=== PATIENT | male | born 1960 | race Caucasian/White ===

== ENCOUNTER 2020-11-02 11:00 | Inpatient (IN) ==
[2020-11-02] MEDS ORDERED: *HR* OxyCODONE/APAP 5/325 TABLET PO ONE (11:10)
[2020-11-02] MEDS ORDERED: Furosemide 40 MG/4 ML VIAL IVP ONE (11:10)
[2020-11-02 12:00] LABS: Basophils # 0.1 K/mcL (0.0-0.2); Basophils % 0.8 %; Eosinophils # 0.3 K/mcL (0.0-0.6); Eosinophils % 3.4 %; Hematocrit 40.7 % (37.5-50.1); Immature Granulocytes % 0.4 % (0-4); Lymphocytes # 1.1 K/mcL (0.6-4.6); Lymphocytes % 15.4 %; Mean Corpuscular HGB Conc 31.9 g/dL (31.6-35.5); Mean Corpuscular Hemoglobin 33.2 pg (28.0-33.3); Mean Corpuscular Volume 104.1 fL (83.0-100.0); Mean Platelet Volume 9.6 fL (9.4-12.4); Monocytes # 0.8 K/mcL (0.0-1.3); Monocytes % 10.4 %; Neutrophils # 5.2 K/mcL (1.6-8.9); Platelet Count 187 K/mcL (140-400); Red Blood Count 3.91 M/mcL (4.19-5.50); Red Cell Distribution Width 12.9 % (11.5-14.5); Segmented Neutrophils % 69.6 %; White Blood Count 7.4 K/mcL (4.3-11.1)
[2020-11-02 12:20] LABS: Alanine Aminotransferase 31 Units/L (7-52); Albumin 3.8 g/dL (3.5-5.7); Albumin/Globulin Ratio 1.5 (1.1-2.2); Alkaline Phosphatase 74 Units/L (34-104); Aspartate Amino Transferase 21 Units/L (13-39); BUN/Creatinine Ratio 30 (6-26); Bilirubin,Direct 0.1 mg/dL (0.0-0.2); Bilirubin,Indirect 0.6 mg/dL (0.0-1.0); Bilirubin,Total 0.7 mg/dL (0.3-1.0); Blood Urea Nitrogen 31 mg/dL (8-23); Calcium 8.1 mg/dL (8.6-10.3); Carbon Dioxide 34 mEq/L (23-29); Chloride 98 mEq/L (98-107); Globulin 2.6 g/dL (2.4-3.5); Glucose 83 mg/dL (70-105); Osmolality,Calculated 294 (280-300); Potassium 4.2 mEq/L (3.5-5.1); Sodium 139 mEq/L (136-145); Total Protein 6.4 g/dL (6.4-8.9); Troponin I < 0.03 ng/mL (< 0.04); eGFR For African Americans > 60 (> 60); eGFR For Non-African Americans > 60 (> 60)
[2020-11-02 12:32] LABS: Bilirubin,Urine Negative (Negative); Blood,Urine Negative (Negative); Clarity,Urine Clear (Clear); Color,Urine Light-Yellow (Yellow); Glucose,Urine (UA) Normal (Normal); Ketones,Urine Negative (Negative); Leukocyte Esterase,Urine Negative (Negative); Nitrite,Urine Negative (Negative); PH,Urine 6.5 pH Units (5.0-8.0); Protein,Urine Negative (Neg-Trace); Specific Gravity,Urine 1.015 (1.010-1.025); Urobilinogen,Urine Normal (Normal)
[2020-11-02] MEDS ORDERED: Ondansetron 4 MG/2 ML VIAL IVP PRN (12:54)
[2020-11-02] MEDS ORDERED: Naloxone 0.4 MG/ML INJ IVP PRN (12:54)
[2020-11-02] MEDS ORDERED: Perflutren Lipid Microsphere 1.3 ML in 0.9 % Sodium Chloride 8.7 ML IVP PRN (12:58)
[2020-11-02] MEDS ORDERED: Loratadine 10 MG TABLET PO PRN (13:33)
[2020-11-02] MEDS ORDERED: traZODone 50 MG TABLET PO PRN (13:33)
[2020-11-02] MEDS ORDERED: Nicotine 2 MG GUM PO PRN (13:33)
[2020-11-02 13:38] LABS: INR 2.5
[2020-11-02 14:37] LABS: INR 2.4; Prothrombin Time 27.6 Seconds (9.4-12.1)
[2020-11-02] MEDS: Gabapentin 300 MG CAPSULE PO SCH ×2 (14:47→22:04)
[2020-11-02] MEDS: Nicotine 21 MG PATCH.TD24 TD SCH (14:47)
[2020-11-02] MEDS: *HR* OxyCODONE/APAP 5/325 TABLET PO PRN (17:27)
[2020-11-02] MEDS ORDERED: Warfarin perPT PO PRN (18:00)
[2020-11-02] MEDS ORDERED: *HR* Warfarin 7.5 MG TABLET PO ONE (18:00)
[2020-11-02] MEDS: Budesonide/Formoterol 160/4.5 1 PUFF INH IH SCH (19:56)
[2020-11-02] MEDS: Metoprolol XL (24 HR) Succ 50 MG TAB.ER.24H PO SCH (22:04)
[2020-11-02] MEDS: Famotidine 20 MG TABLET PO SCH (22:04)
[2020-11-02] MEDS: Furosemide 40 MG/4 ML VIAL IVP SCH (22:05)
[2020-11-03] MEDS: Saline Nasal Spray 44 ML BOTTLE NS SCH ×3 (00:07→20:46)
[2020-11-03] MEDS: *HR* OxyCODONE/APAP 5/325 TABLET PO PRN ×4 (03:27→21:37)
[2020-11-03 03:49] LABS: Basophils # 0.1 K/mcL (0.0-0.2); Basophils % 0.8 %; Eosinophils # 0.3 K/mcL (0.0-0.6); Eosinophils % 4.2 %; Hemoglobin 12.9 g/dL (12.9-16.9); Immature Granulocytes % 0.5 % (0-4); Lymphocytes # 1.3 K/mcL (0.6-4.6); Lymphocytes % 19.6 %; Mean Corpuscular HGB Conc 31.5 g/dL (31.6-35.5); Mean Corpuscular Hemoglobin 33.4 pg (28.0-33.3); Mean Corpuscular Volume 106.2 fL (83.0-100.0); Mean Platelet Volume 9.8 fL (9.4-12.4); Monocytes # 0.7 K/mcL (0.0-1.3); Monocytes % 11.2 %; Neutrophils # 4.2 K/mcL (1.6-8.9); Platelet Count 185 K/mcL (140-400); Red Blood Count 3.86 M/mcL (4.19-5.50); Segmented Neutrophils % 63.7 %; White Blood Count 6.6 K/mcL (4.3-11.1)
[2020-11-03 03:59] LABS: INR 2.4; Prothrombin Time 27.2 Seconds (9.4-12.1)
[2020-11-03 04:07] LABS: BUN/Creatinine Ratio 23 (6-26); Blood Urea Nitrogen 30 mg/dL (8-23); Calcium 8.3 mg/dL (8.6-10.3); Carbon Dioxide 40 mEq/L (23-29); Chloride 98 mEq/L (98-107); Glucose 101 mg/dL (70-105); Magnesium 2.2 mg/dL (1.6-2.6); Osmolality,Calculated 298 (280-300); Potassium 4.6 mEq/L (3.5-5.1); Sodium 141 mEq/L (136-145); eGFR For African Americans > 60 (> 60); eGFR For Non-African Americans 55 (> 60)
[2020-11-03] MEDS: ARIPiprazole 10 MG TABLET PO SCH (08:08)
[2020-11-03] MEDS: Gabapentin 300 MG CAPSULE PO SCH ×3 (08:08→20:45)
[2020-11-03] MEDS: Cholecalciferol (D-3) 1,000 UNIT (25MCG) TABLET PO SCH (08:08)
[2020-11-03] MEDS: Furosemide 40 MG/4 ML VIAL IVP SCH (08:09)
[2020-11-03] MEDS: Nicotine 21 MG PATCH.TD24 TD SCH (08:09)
[2020-11-03] MEDS: Famotidine 20 MG TABLET PO SCH ×2 (08:09→20:45)
[2020-11-03] MEDS: Metoprolol XL (24 HR) Succ 50 MG TAB.ER.24H PO SCH ×2 (08:09→20:45)
[2020-11-03] MEDS: PARoxetine 20 MG TABLET PO SCH (08:09)
[2020-11-03] MEDS: Aspirin Enteric Coated 81 MG Tablet PO SCH (08:09)
[2020-11-03] MEDS: Budesonide/Formoterol 160/4.5 1 PUFF INH IH SCH ×2 (10:59→22:34)
[2020-11-03] MEDS ORDERED: *HR* Warfarin 7.5 MG TABLET PO ONE (18:00)
[2020-11-04 02:12] LABS: INR 2.6; Prothrombin Time 29.7 Seconds (9.4-12.1)
[2020-11-04 02:20] LABS: BUN/Creatinine Ratio 23 (6-26); Blood Urea Nitrogen 30 mg/dL (8-23); Calcium 8.1 mg/dL (8.6-10.3); Carbon Dioxide 36 mEq/L (23-29); Chloride 95 mEq/L (98-107); Glucose 156 mg/dL (70-105); Magnesium 2.1 mg/dL (1.6-2.6); Osmolality,Calculated 293 (280-300); Phosphorous 3.3 mg/dL (2.7-4.5); Potassium 4.1 mEq/L (3.5-5.1); Sodium 137 mEq/L (136-145); eGFR For African Americans > 60 (> 60); eGFR For Non-African Americans 56 (> 60)
[2020-11-04] MEDS: *HR* OxyCODONE/APAP 5/325 TABLET PO PRN ×4 (03:44→22:25)
[2020-11-04] MEDS: Cholecalciferol (D-3) 1,000 UNIT (25MCG) TABLET PO SCH (10:05)
[2020-11-04] MEDS: Aspirin Enteric Coated 81 MG Tablet PO SCH (10:05)
[2020-11-04] MEDS: Gabapentin 300 MG CAPSULE PO SCH ×3 (10:05→20:33)
[2020-11-04] MEDS: PARoxetine 20 MG TABLET PO SCH (10:05)
[2020-11-04] MEDS: Famotidine 20 MG TABLET PO SCH ×2 (10:05→20:33)
[2020-11-04] MEDS: ARIPiprazole 10 MG TABLET PO SCH (10:05)
[2020-11-04] MEDS: Metoprolol XL (24 HR) Succ 50 MG TAB.ER.24H PO SCH ×2 (10:05→20:33)
[2020-11-04] MEDS: Nicotine 21 MG PATCH.TD24 TD SCH (10:06)
[2020-11-04] MEDS: Furosemide 40 MG/4 ML VIAL IVP SCH (10:06)
[2020-11-04] MEDS: Saline Nasal Spray 44 ML BOTTLE NS SCH ×2 (10:15→20:34)
[2020-11-04] MEDS: Budesonide/Formoterol 160/4.5 1 PUFF INH IH SCH ×3 (10:59→20:05)
[2020-11-04] MEDS ORDERED: *HR* Warfarin 5 MG TABLET PO ONE (18:00)
[2020-11-05 02:36] LABS: INR 2.9; Prothrombin Time 32.9 Seconds (9.4-12.1)
[2020-11-05] MEDS: *HR* OxyCODONE/APAP 5/325 TABLET PO PRN ×2 (04:43→11:16)
[2020-11-05] MEDS: Gabapentin 300 MG CAPSULE PO SCH (09:13)
[2020-11-05] MEDS: Cholecalciferol (D-3) 1,000 UNIT (25MCG) TABLET PO SCH (09:13)
[2020-11-05] MEDS: Famotidine 20 MG TABLET PO SCH (09:13)
[2020-11-05] MEDS: PARoxetine 20 MG TABLET PO SCH (09:13)
[2020-11-05] MEDS: ARIPiprazole 10 MG TABLET PO SCH (09:13)
[2020-11-05] MEDS: Metoprolol XL (24 HR) Succ 50 MG TAB.ER.24H PO SCH (09:14)
[2020-11-05] MEDS: Nicotine 21 MG PATCH.TD24 TD SCH (09:15)
[2020-11-05] MEDS: Furosemide 40 MG/4 ML VIAL IVP SCH (09:15)
[2020-11-05] MEDS: Aspirin Enteric Coated 81 MG Tablet PO SCH (09:15)
[2020-11-05] MEDS: Saline Nasal Spray 44 ML BOTTLE NS SCH (09:16)
[2020-11-05] MEDS: Budesonide/Formoterol 160/4.5 1 PUFF INH IH SCH (10:17)
[2020-11-05 10:58] VITALS: BP 116/75
[2020-11-05 12:38] LABS: Adenovirus Not Detected (Not Detect); Bordetella Pertussis Not Detected (Not Detect); Chlamydophila pneumoniae Not Detected (Not Detect); Coronavirus 229E Not Detected (Not Detect); Coronavirus HKU1 Not Detected (Not Detect); Coronavirus NL63 Not Detected (Not Detect); Coronavirus OC43 Not Detected (Not Detect); Human Metapneumovirus Not Detected (Not Detect); Human Rhinovirus/Enterovirus Not Detected (Not Detect); Influenza A Subtype 2009 H1 Not Detected (Not Detect); Influenza B Not Detected (Not Detect); Mycoplasma pneumoniae Not Detected (Not Detect); Parainfluenza Virus 1 Not Detected (Not Detect); Parainfluenza Virus 2 Not Detected (Not Detect); Parainfluenza Virus 3 Not Detected (Not Detect); Parainfluenza Virus 4 Not Detected (Not Detect); Respiratory Syncytial Virus Not Detected (Not Detect); SARS-CoV-2 Not Detected (Not Detect)
[2020-11-05] MEDS ORDERED: *HR* Warfarin 5 MG TABLET PO ONE (18:00)
== END 2020-11-05 14:19 | DRG 292 ==
LOC: 2ANU 11:00 → EMEROOARM 11:00 → SUATTDRO 12:55 → 2ANU 14:01
PROVIDERS: ADMIT Internal Medicine; ATTEND Internal Medicine

== ENCOUNTER 2020-11-11 11:34 | Inpatient (IN) ==
[2020-11-11] MEDS ORDERED: Furosemide 40 MG/4 ML VIAL IVP ONE (11:57)
[2020-11-11] MEDS ORDERED: *HR* HYDROcodone/Acet 5/325 mg TABLET PO ONE (12:00)
[2020-11-11 12:10] LABS: Hematocrit 39.8 % (37.5-50.1); Hemoglobin 12.1 g/dL (12.9-16.9); Immature Granulocytes % 0.5 % (0-4); Lymphocytes % 11.6 %; Mean Corpuscular HGB Conc 30.4 g/dL (31.6-35.5); Mean Corpuscular Hemoglobin 32.9 pg (28.0-33.3); Mean Corpuscular Volume 108.2 fL (83.0-100.0); Mean Platelet Volume 9.8 fL (9.4-12.4); Monocytes % 10.3 %; Platelet Count 206 K/mcL (140-400); Red Blood Count 3.68 M/mcL (4.19-5.50); Red Cell Distribution Width 13.2 % (11.5-14.5); Segmented Neutrophils % 74.3 %; White Blood Count 7.9 K/mcL (4.3-11.1)
[2020-11-11 12:11] LABS: Basophils # 0.1 K/mcL (0.0-0.2); Basophils % 0.9 %; Eosinophils # 0.2 K/mcL (0.0-0.6); Eosinophils % 2.4 %; Lymphocytes # 0.9 K/mcL (0.6-4.6); Monocytes # 0.8 K/mcL (0.0-1.3); Neutrophils # 5.9 K/mcL (1.6-8.9)
[2020-11-11 12:19] LABS: INR 3.6; Prothrombin Time 39.8 Seconds (9.4-12.1)
[2020-11-11 12:22] LABS: Bilirubin,Urine Negative (Negative); Blood,Urine Negative (Negative); Clarity,Urine Clear (Clear); Color,Urine Colorless (Yellow); Glucose,Urine (UA) Normal (Normal); Ketones,Urine Negative (Negative); Leukocyte Esterase,Urine Negative (Negative); Nitrite,Urine Negative (Negative); Protein,Urine Negative (Neg-Trace); Urobilinogen,Urine Normal (Normal)
[2020-11-11 12:22] LABS: Activated Partial Thrombo Time 40.4 Seconds (26.0-36.0)
[2020-11-11 12:50] LABS: Alanine Aminotransferase 66 Units/L (7-52); Albumin 3.8 g/dL (3.5-5.7); Albumin/Globulin Ratio 1.5 (1.1-2.2); Alkaline Phosphatase 73 Units/L (34-104); Aspartate Amino Transferase 45 Units/L (13-39); BUN/Creatinine Ratio 34 (6-26); Bilirubin,Direct 0.1 mg/dL (0.0-0.2); Bilirubin,Indirect 0.5 mg/dL (0.0-1.0); Bilirubin,Total 0.6 mg/dL (0.3-1.0); Blood Urea Nitrogen 34 mg/dL (8-23); Carbon Dioxide 36 mEq/L (23-29); Chloride 100 mEq/L (98-107); Globulin 2.5 g/dL (2.4-3.5); Glucose 96 mg/dL (70-105); Osmolality,Calculated 299 (280-300); Potassium 5.1 mEq/L (3.5-5.1); Sodium 141 mEq/L (136-145); Total Protein 6.3 g/dL (6.4-8.9); Troponin I < 0.03 ng/mL (< 0.04); eGFR For African Americans > 60 (> 60); eGFR For Non-African Americans > 60 (> 60)
[2020-11-11] MEDS ORDERED: Ondansetron 4 MG/2 ML VIAL IVP PRN (15:26)
[2020-11-11] MEDS ORDERED: Naloxone 0.4 MG/ML INJ IVP PRN (15:26)
[2020-11-11] MEDS ORDERED: Acetaminophen 325 MG TABLET PO PRN (15:26)
[2020-11-11] MEDS ORDERED: traZODone 50 MG TABLET PO PRN (18:05)
[2020-11-11] MEDS ORDERED: Loratadine 10 MG TABLET PO PRN (18:05)
[2020-11-11] MEDS: *HR* HYDROcodone/Acet 5/325 mg TABLET PO PRN (18:27)
[2020-11-11] MEDS: Famotidine 20 MG TABLET PO SCH (20:15)
[2020-11-11] MEDS: Metoprolol XL (24 HR) Succ 50 MG TAB.ER.24H PO SCH (20:15)
[2020-11-11] MEDS: Gabapentin 400 MG CAPSULE PO SCH (20:16)
[2020-11-11] MEDS: Albumin 25% 25gram/100mL 25 GM/100 ML IV.SOLN IVPB SCH (20:16)
[2020-11-11] MEDS: Saline Nasal Spray 44 ML BOTTLE NS SCH (20:16)
[2020-11-11] MEDS: Furosemide 40 MG/4 ML VIAL IVP SCH (20:16)
[2020-11-11] MEDS: predniSONE 20 MG TABLET PO SCH (21:11)
[2020-11-11] MEDS: Azithromycin 250 MG TABLET PO SCH (21:11)
[2020-11-11] MEDS: Budesonide/Formoterol 160/4.5 1 PUFF INH IH SCH (21:20)
[2020-11-12 03:39] LABS: Hematocrit 37.6 % (37.5-50.1); Hemoglobin 11.4 g/dL (12.9-16.9); Mean Corpuscular HGB Conc 30.3 g/dL (31.6-35.5); Mean Corpuscular Hemoglobin 33.3 pg (28.0-33.3); Mean Corpuscular Volume 109.9 fL (83.0-100.0); Mean Platelet Volume 9.9 fL (9.4-12.4); Platelet Count 204 K/mcL (140-400); Red Blood Count 3.42 M/mcL (4.19-5.50); Red Cell Distribution Width 13.6 % (11.5-14.5)
[2020-11-12 03:51] LABS: INR 3.4
[2020-11-12 04:03] LABS: BUN/Creatinine Ratio 26 (6-26); Blood Urea Nitrogen 31 mg/dL (8-23); Calcium 8.8 mg/dL (8.6-10.3); Carbon Dioxide 41 mEq/L (23-29); Chloride 98 mEq/L (98-107); Glucose 134 mg/dL (70-105); Magnesium 2.1 mg/dL (1.6-2.6); Osmolality,Calculated 303 (280-300); Phosphorous 3.5 mg/dL (2.7-4.5); Sodium 142 mEq/L (136-145); Troponin I < 0.03 ng/mL (< 0.04); eGFR For African Americans > 60 (> 60); eGFR For Non-African Americans > 60 (> 60)
[2020-11-12] MEDS: Albumin 25% 25gram/100mL 25 GM/100 ML IV.SOLN IVPB SCH ×2 (08:23→19:37)
[2020-11-12] MEDS: Gabapentin 400 MG CAPSULE PO SCH ×3 (08:28→19:18)
[2020-11-12] MEDS: ARIPiprazole 10 MG TABLET PO SCH (08:28)
[2020-11-12] MEDS: Aspirin Enteric Coated 81 MG Tablet PO SCH (08:28)
[2020-11-12] MEDS: Nicotine 21 MG PATCH.TD24 TD SCH (08:28)
[2020-11-12] MEDS: predniSONE 20 MG TABLET PO SCH (08:29)
[2020-11-12] MEDS: PARoxetine 20 MG TABLET PO SCH (08:29)
[2020-11-12] MEDS: Famotidine 20 MG TABLET PO SCH ×2 (08:29→19:18)
[2020-11-12] MEDS: Multivit/Ca/Min/Fe/FA 1 TAB TABLET PO SCH (08:30)
[2020-11-12] MEDS: *HR* HYDROcodone/Acet 5/325 mg TABLET PO PRN (08:30)
[2020-11-12] MEDS: Azithromycin 250 MG TABLET PO SCH (08:30)
[2020-11-12] MEDS: Metoprolol XL (24 HR) Succ 50 MG TAB.ER.24H PO SCH ×2 (08:30→19:19)
[2020-11-12] MEDS: Saline Nasal Spray 44 ML BOTTLE NS SCH ×2 (08:33→19:18)
[2020-11-12] MEDS: Budesonide/Formoterol 160/4.5 1 PUFF INH IH SCH ×2 (09:47→20:22)
[2020-11-12] MEDS: Furosemide 40 MG/4 ML VIAL IVP SCH ×2 (10:21→21:29)
[2020-11-12] MEDS ORDERED: Warfarin perPT PO PRN (18:00)
[2020-11-13] MEDS: *HR* HYDROcodone/Acet 5/325 mg TABLET PO PRN ×3 (01:07→21:30)
[2020-11-13] MEDS: Ipratropium/Albuterol Neb 3 ML IH PRN ×2 (01:11→08:43)
[2020-11-13 02:32] LABS: Basophils % 0.4 %; Eosinophils # 0.1 K/mcL (0.0-0.6); Eosinophils % 1.6 %; Hematocrit 34.4 % (37.5-50.1); Hemoglobin 10.4 g/dL (12.9-16.9); Immature Granulocytes % 0.6 % (0-4); Lymphocytes % 13.5 %; Mean Corpuscular HGB Conc 30.2 g/dL (31.6-35.5); Mean Corpuscular Hemoglobin 32.8 pg (28.0-33.3); Mean Corpuscular Volume 108.5 fL (83.0-100.0); Mean Platelet Volume 9.8 fL (9.4-12.4); Monocytes # 0.7 K/mcL (0.0-1.3); Monocytes % 10.2 %; Neutrophils # 5.2 K/mcL (1.6-8.9); Platelet Count 184 K/mcL (140-400); Red Blood Count 3.17 M/mcL (4.19-5.50); Red Cell Distribution Width 13.4 % (11.5-14.5); Segmented Neutrophils % 73.7 %
[2020-11-13 02:58] LABS: BUN/Creatinine Ratio 30 (6-26); Blood Urea Nitrogen 34 mg/dL (8-23); Calcium 8.8 mg/dL (8.6-10.3); Carbon Dioxide 40 mEq/L (23-29); Chloride 99 mEq/L (98-107); Glucose 140 mg/dL (70-105); Osmolality,Calculated 306 (280-300); Potassium 4.2 mEq/L (3.5-5.1); Sodium 143 mEq/L (136-145); eGFR For African Americans > 60 (> 60); eGFR For Non-African Americans > 60 (> 60)
[2020-11-13] MEDS: Albumin 25% 25gram/100mL 25 GM/100 ML IV.SOLN IVPB SCH ×2 (06:43→16:47)
[2020-11-13] MEDS: Nicotine 21 MG PATCH.TD24 TD SCH (08:30)
[2020-11-13] MEDS: Furosemide 40 MG/4 ML VIAL IVP SCH ×2 (08:30→18:14)
[2020-11-13] MEDS: PARoxetine 20 MG TABLET PO SCH (08:31)
[2020-11-13] MEDS: ARIPiprazole 10 MG TABLET PO SCH (08:31)
[2020-11-13] MEDS: Gabapentin 400 MG CAPSULE PO SCH ×3 (08:31→21:30)
[2020-11-13] MEDS: Azithromycin 250 MG TABLET PO SCH (08:31)
[2020-11-13] MEDS: Multivit/Ca/Min/Fe/FA 1 TAB TABLET PO SCH (08:31)
[2020-11-13] MEDS: predniSONE 20 MG TABLET PO SCH (08:31)
[2020-11-13] MEDS: Aspirin Enteric Coated 81 MG Tablet PO SCH (08:31)
[2020-11-13] MEDS: Metoprolol XL (24 HR) Succ 50 MG TAB.ER.24H PO SCH ×2 (08:31→21:39)
[2020-11-13] MEDS: Saline Nasal Spray 44 ML BOTTLE NS SCH ×2 (08:32→21:31)
[2020-11-13] MEDS: Famotidine 20 MG TABLET PO SCH ×2 (08:32→21:30)
[2020-11-13] MEDS: Budesonide/Formoterol 160/4.5 1 PUFF INH IH SCH ×2 (08:43→21:49)
[2020-11-13 09:42] LABS: INR 2.2; Prothrombin Time 24.4 Seconds (9.4-12.1)
[2020-11-13] MEDS ORDERED: *HR* Warfarin 5 MG TABLET PO ONE (18:00)
[2020-11-13] MEDS: Melatonin 3 MG TABLET PO PRN (21:31)
[2020-11-14 05:57] LABS: INR 1.5; Prothrombin Time 17.2 Seconds (9.4-12.1)
[2020-11-14] MEDS: Albumin 25% 25gram/100mL 25 GM/100 ML IV.SOLN IVPB SCH (06:22)
[2020-11-14] MEDS: Budesonide/Formoterol 160/4.5 1 PUFF INH IH SCH (07:46)
[2020-11-14] MEDS: Furosemide 40 MG/4 ML VIAL IVP SCH (08:44)
[2020-11-14] MEDS: PARoxetine 20 MG TABLET PO SCH (08:44)
[2020-11-14] MEDS: Azithromycin 250 MG TABLET PO SCH (08:44)
[2020-11-14] MEDS: ARIPiprazole 10 MG TABLET PO SCH (08:45)
[2020-11-14] MEDS: Multivit/Ca/Min/Fe/FA 1 TAB TABLET PO SCH (08:45)
[2020-11-14] MEDS: Metoprolol XL (24 HR) Succ 50 MG TAB.ER.24H PO SCH ×2 (08:45→21:16)
[2020-11-14] MEDS: Aspirin Enteric Coated 81 MG Tablet PO SCH (08:45)
[2020-11-14] MEDS: predniSONE 20 MG TABLET PO SCH (08:45)
[2020-11-14] MEDS: Famotidine 20 MG TABLET PO SCH ×2 (08:45→21:16)
[2020-11-14] MEDS: Gabapentin 400 MG CAPSULE PO SCH ×3 (08:45→21:16)
[2020-11-14] MEDS: Saline Nasal Spray 44 ML BOTTLE NS SCH ×2 (08:46→23:37)
[2020-11-14] MEDS: Nicotine 21 MG PATCH.TD24 TD SCH (08:46)
[2020-11-14] MEDS: *HR* HYDROcodone/Acet 5/325 mg TABLET PO PRN (17:39)
[2020-11-14] MEDS: Bumetanide 1 MG/4 ML VIAL IVP SCH (17:40)
[2020-11-14] MEDS ORDERED: *HR* Warfarin 7.5 MG TABLET PO ONE (18:00)
[2020-11-14] MEDS ORDERED: *HR* Warfarin 5 MG TABLET PO ONE (18:00)
[2020-11-14] MEDS: Melatonin 3 MG TABLET PO PRN (22:42)
[2020-11-15] MEDS: Budesonide/Formoterol 160/4.5 1 PUFF INH IH SCH ×3 (04:40→20:30)
[2020-11-15] MEDS: *HR* HYDROcodone/Acet 5/325 mg TABLET PO PRN ×3 (05:45→23:31)
[2020-11-15 06:45] LABS: Hematocrit 34.3 % (37.5-50.1); Hemoglobin 10.5 g/dL (12.9-16.9); Mean Corpuscular HGB Conc 30.6 g/dL (31.6-35.5); Mean Corpuscular Hemoglobin 33.4 pg (28.0-33.3); Mean Corpuscular Volume 109.2 fL (83.0-100.0); Mean Platelet Volume 9.5 fL (9.4-12.4); Platelet Count 187 K/mcL (140-400); Red Blood Count 3.14 M/mcL (4.19-5.50); Red Cell Distribution Width 13.6 % (11.5-14.5); White Blood Count 7.8 K/mcL (4.3-11.1)
[2020-11-15 06:51] LABS: INR 1.5; Prothrombin Time 16.8 Seconds (9.4-12.1)
[2020-11-15 07:09] LABS: BUN/Creatinine Ratio 40 (6-26); Blood Urea Nitrogen 40 mg/dL (8-23); Calcium 8.8 mg/dL (8.6-10.3); Carbon Dioxide 40 mEq/L (23-29); Chloride 96 mEq/L (98-107); Glucose 117 mg/dL (70-105); Osmolality,Calculated 303 (280-300); Potassium 4.3 mEq/L (3.5-5.1); Sodium 141 mEq/L (136-145); eGFR For African Americans > 60 (> 60); eGFR For Non-African Americans > 60 (> 60)
[2020-11-15] MEDS: Famotidine 20 MG TABLET PO SCH ×2 (08:43→21:51)
[2020-11-15] MEDS: Multivit/Ca/Min/Fe/FA 1 TAB TABLET PO SCH (08:43)
[2020-11-15] MEDS: Aspirin Enteric Coated 81 MG Tablet PO SCH (08:43)
[2020-11-15] MEDS: Bumetanide 1 MG/4 ML VIAL IVP SCH ×2 (08:44→17:25)
[2020-11-15] MEDS: Saline Nasal Spray 44 ML BOTTLE NS SCH ×2 (08:44→23:00)
[2020-11-15] MEDS: Nicotine 21 MG PATCH.TD24 TD SCH (08:44)
[2020-11-15] MEDS: ARIPiprazole 10 MG TABLET PO SCH (08:44)
[2020-11-15] MEDS: Gabapentin 400 MG CAPSULE PO SCH ×3 (08:44→21:51)
[2020-11-15] MEDS: Metoprolol XL (24 HR) Succ 50 MG TAB.ER.24H PO SCH ×2 (08:44→21:51)
[2020-11-15] MEDS: PARoxetine 20 MG TABLET PO SCH (08:44)
[2020-11-15] MEDS ORDERED: *HR* Warfarin 7.5 MG TABLET PO ONE (18:00)
[2020-11-15] MEDS: Ipratropium/Albuterol Neb 3 ML IH PRN (23:36)
[2020-11-16 03:11] LABS: INR 1.6; Prothrombin Time 18.7 Seconds (9.4-12.1)
[2020-11-16] MEDS: Budesonide/Formoterol 160/4.5 1 PUFF INH IH SCH ×2 (07:30→19:59)
[2020-11-16] MEDS: Ipratropium/Albuterol Neb 3 ML IH PRN ×2 (07:30→15:58)
[2020-11-16] MEDS: Bumetanide 1 MG/4 ML VIAL IVP SCH ×2 (07:39→17:45)
[2020-11-16] MEDS: Multivit/Ca/Min/Fe/FA 1 TAB TABLET PO SCH (07:39)
[2020-11-16] MEDS: Famotidine 20 MG TABLET PO SCH ×2 (07:39→20:30)
[2020-11-16] MEDS: Gabapentin 400 MG CAPSULE PO SCH ×3 (07:39→20:31)
[2020-11-16] MEDS: Metoprolol XL (24 HR) Succ 50 MG TAB.ER.24H PO SCH ×2 (07:39→20:31)
[2020-11-16] MEDS: ARIPiprazole 10 MG TABLET PO SCH (07:40)
[2020-11-16] MEDS: PARoxetine 20 MG TABLET PO SCH (07:40)
[2020-11-16] MEDS: Aspirin Enteric Coated 81 MG Tablet PO SCH (07:40)
[2020-11-16] MEDS: Nicotine 21 MG PATCH.TD24 TD SCH (07:41)
[2020-11-16] MEDS: *HR* HYDROcodone/Acet 5/325 mg TABLET PO PRN (07:41)
[2020-11-16] MEDS: Saline Nasal Spray 44 ML BOTTLE NS SCH ×2 (07:55→20:30)
[2020-11-16] MEDS: *HR* OxyCODONE/APAP 5/325 TABLET PO PRN ×3 (13:18→21:45)
[2020-11-16] MEDS ORDERED: *HR* Warfarin 7.5 MG TABLET PO ONE (18:00)
[2020-11-17] MEDS: Ipratropium/Albuterol Neb 3 ML IH PRN ×3 (02:31→19:56)
[2020-11-17 04:21] LABS: Hematocrit 34.6 % (37.5-50.1); Hemoglobin 10.3 g/dL (12.9-16.9); Mean Corpuscular HGB Conc 29.8 g/dL (31.6-35.5); Mean Corpuscular Hemoglobin 32.9 pg (28.0-33.3); Mean Corpuscular Volume 110.5 fL (83.0-100.0); Platelet Count 181 K/mcL (140-400); Red Blood Count 3.13 M/mcL (4.19-5.50); Red Cell Distribution Width 13.5 % (11.5-14.5); White Blood Count 7.5 K/mcL (4.3-11.1)
[2020-11-17 04:43] LABS: Prothrombin Time 22.7 Seconds (9.4-12.1)
[2020-11-17 05:06] LABS: BUN/Creatinine Ratio 30 (6-26); Blood Urea Nitrogen 37 mg/dL (8-23); Calcium 8.8 mg/dL (8.6-10.3); Carbon Dioxide 45 mEq/L (23-29); Chloride 94 mEq/L (98-107); Glucose 90 mg/dL (70-105); Osmolality,Calculated 304 (280-300); Potassium 4.7 mEq/L (3.5-5.1); Sodium 143 mEq/L (136-145); eGFR For African Americans > 60 (> 60); eGFR For Non-African Americans 59 (> 60)
[2020-11-17 08:23] LABS: VBG HCO3 42 mEq/L (21-27); VBG PCO2 77 mmHg (41-51); VBG PH 7.34 pH Units (7.32-7.42); VBG PO2 48 mmHg (25-50)
[2020-11-17] MEDS: Nicotine 21 MG PATCH.TD24 TD SCH (08:25)
[2020-11-17] MEDS: Bumetanide 1 MG/4 ML VIAL IVP SCH (08:25)
[2020-11-17] MEDS: Multivit/Ca/Min/Fe/FA 1 TAB TABLET PO SCH (08:26)
[2020-11-17] MEDS: *HR* OxyCODONE/APAP 5/325 TABLET PO PRN ×3 (08:26→19:44)
[2020-11-17] MEDS: ARIPiprazole 10 MG TABLET PO SCH (08:26)
[2020-11-17] MEDS: Metoprolol XL (24 HR) Succ 50 MG TAB.ER.24H PO SCH ×2 (08:26→19:44)
[2020-11-17] MEDS: PARoxetine 20 MG TABLET PO SCH (08:26)
[2020-11-17] MEDS: Famotidine 20 MG TABLET PO SCH ×2 (08:26→19:44)
[2020-11-17] MEDS: Saline Nasal Spray 44 ML BOTTLE NS SCH ×2 (08:26→19:45)
[2020-11-17] MEDS: Aspirin Enteric Coated 81 MG Tablet PO SCH (08:26)
[2020-11-17] MEDS: Gabapentin 400 MG CAPSULE PO SCH ×3 (08:26→19:44)
[2020-11-17] MEDS: Budesonide/Formoterol 160/4.5 1 PUFF INH IH SCH ×2 (10:41→19:56)
[2020-11-17] MEDS: Bumetanide 1 MG TABLET PO SCH (17:01)
[2020-11-17] MEDS ORDERED: *HR* Warfarin 2.5 MG TABLET PO ONE (18:00)
[2020-11-18] MEDS: *HR* OxyCODONE/APAP 5/325 TABLET PO PRN ×6 (00:07→23:02)
[2020-11-18 02:10] LABS: INR 2.3
[2020-11-18 02:50] LABS: BUN/Creatinine Ratio 30 (6-26); Blood Urea Nitrogen 39 mg/dL (8-23); Calcium 8.7 mg/dL (8.6-10.3); Carbon Dioxide 44 mEq/L (23-29); Chloride 91 mEq/L (98-107); Glucose 92 mg/dL (70-105); Osmolality,Calculated 295 (280-300); Potassium 4.4 mEq/L (3.5-5.1); Sodium 138 mEq/L (136-145); eGFR For African Americans > 60 (> 60); eGFR For Non-African Americans 57 (> 60)
[2020-11-18] MEDS: Budesonide/Formoterol 160/4.5 1 PUFF INH IH SCH ×2 (07:25→21:07)
[2020-11-18] MEDS: Saline Nasal Spray 44 ML BOTTLE NS SCH ×2 (08:56→20:28)
[2020-11-18] MEDS: PARoxetine 20 MG TABLET PO SCH (08:56)
[2020-11-18] MEDS: Gabapentin 400 MG CAPSULE PO SCH ×3 (08:56→20:28)
[2020-11-18] MEDS: Bumetanide 1 MG TABLET PO SCH ×2 (08:56→18:21)
[2020-11-18] MEDS: Multivit/Ca/Min/Fe/FA 1 TAB TABLET PO SCH (08:56)
[2020-11-18] MEDS: Famotidine 20 MG TABLET PO SCH ×2 (08:56→20:28)
[2020-11-18] MEDS: Metoprolol XL (24 HR) Succ 50 MG TAB.ER.24H PO SCH ×2 (08:57→20:29)
[2020-11-18] MEDS: ARIPiprazole 10 MG TABLET PO SCH (08:57)
[2020-11-18] MEDS: Aspirin Enteric Coated 81 MG Tablet PO SCH (08:57)
[2020-11-18] MEDS: Nicotine 21 MG PATCH.TD24 TD SCH (08:57)
[2020-11-18] MEDS ORDERED: *HR* Warfarin 5 MG TABLET PO ONE (18:00)
[2020-11-18] MEDS: Ipratropium/Albuterol Neb 3 ML IH PRN (21:07)
[2020-11-19] MEDS: *HR* OxyCODONE/APAP 5/325 TABLET PO PRN ×2 (03:08→07:50)
[2020-11-19 03:17] LABS: INR 2.2; Prothrombin Time 24.4 Seconds (9.4-12.1)
[2020-11-19] MEDS: Budesonide/Formoterol 160/4.5 1 PUFF INH IH SCH (07:23)
[2020-11-19 07:30] VITALS: BP 106/65
[2020-11-19] MEDS: Gabapentin 400 MG CAPSULE PO SCH (07:50)
[2020-11-19] MEDS: Aspirin Enteric Coated 81 MG Tablet PO SCH (07:50)
[2020-11-19] MEDS: Famotidine 20 MG TABLET PO SCH (07:50)
[2020-11-19] MEDS: PARoxetine 20 MG TABLET PO SCH (07:51)
[2020-11-19] MEDS: Nicotine 21 MG PATCH.TD24 TD SCH (07:51)
[2020-11-19] MEDS: Multivit/Ca/Min/Fe/FA 1 TAB TABLET PO SCH (07:51)
[2020-11-19] MEDS: Bumetanide 1 MG TABLET PO SCH (07:51)
[2020-11-19] MEDS: Metoprolol XL (24 HR) Succ 50 MG TAB.ER.24H PO SCH (07:51)
[2020-11-19] MEDS: ARIPiprazole 10 MG TABLET PO SCH (07:51)
[2020-11-19] MEDS: Saline Nasal Spray 44 ML BOTTLE NS SCH (07:53)
== END 2020-11-19 10:13 | disposition home or self-care (01) | DRG 291 ==
LOC: 2NENU 11:34 → EMEROOARM 11:34 → SUATTDRO 13:57 → 2NENU 14:42 → CDU 11-14 22:01 → 2ANU 11-15 18:18
PROVIDERS: ADMIT Internal Medicine; ATTEND Internal Medicine